=== PATIENT | female | born 1985 | race Caucasian/White ===

== ENCOUNTER 2023-06-15 02:08 | Day surgery (SDC) | payer OTHER ==
[2023-06-15 14:55] VITALS: BP 103/64
[2023-06-15 15:30] LABS: Albumin, Blood 3.1 g/dL (3.4-5.0); Albumin/Globulin Ratio 1.2 (0.8-1.8); Bilirubin, Total 0.2 mg/dL (0.1-1.0); Calcium, Blood 8.3 mg/dL (8.5-10.1); Creatinine, Blood 0.67 mg/dL (0.40-1.00); Globulin, Blood 2.5 g/dL (2.2-4.0); Potassium, Blood 4.1 mmol/L (3.5-5.5); Total Protein, Blood 5.6 g/dL (6.4-8.2)
[2023-06-15] MEDS ORDERED: PANTOPRAZOLE SO40 M2 PO (15:34)
[2023-06-15] MEDS ORDERED: BUDESONIDE EC3 M5 PO (15:34)
[2023-06-15] MEDS ORDERED: ONDA4 PO (15:34)
[2023-06-15] MEDS ORDERED: MIRALAX17 GM PO (15:35)
[2023-06-15] MEDS ORDERED: PROC5 PO (15:35)
--- NOTE | 2023-06-15 16:52 | NUR ---
FAXED RESULTS OF LAB WORK COMPLETED TODAY TO DR. COYLE'S OFFICE AT [phone]. ATTEMPTED TO CALL DR. COYLE, UNABLE TO REACH MD AT THE NUMBER PROVIDED ON THE ORDER.
== END 2023-06-15 16:00 | disposition home or self-care (01) ==
LOC: ATC 02:08
PROVIDERS: Internal Medicine Hematology & Oncology
DX: C43.72 Malignant melanoma of left lower limb, including hip (principal); E78.00 Pure hypercholesterolemia, unspecified; F41.9 Anxiety disorder, unspecified
CPT/HCPCS: 80053; 96360; J7030